=== PATIENT | female | born 1980 | race Hispanic/Latino ===

== ENCOUNTER 2019-05-24 00:16 | Inpatient (IN) | payer MEDICAID, OTHER ==
[2019-05-24] MEDS: Lactated Ringer's 1,000 ML IV SCH (01:01)
[2019-05-24] MEDS ORDERED: hydrALAZINE 20 MG/ML VIAL SLOW IVP PRN ×3 (01:04→05:42)
[2019-05-24] MEDS ORDERED: Acetaminophen 500 MG TAB PO PRN ×2 (01:04→07:19)
[2019-05-24] MEDS ORDERED: Promethazine HCl 25 MG/ML VIAL IM PRN (01:04)
[2019-05-24] MEDS ORDERED: Ondansetron PF 4 MG/2 ML Vial IVP PRN (01:04)
[2019-05-24 01:14] VITALS: BMI 39.0
[2019-05-24] MEDS ORDERED: Magnesium Sulfate 20 gm/500 ml 20 GM/500 ML BAG ONE (01:14)
[2019-05-24] MEDS ORDERED: Calcium Gluc 4.6 MEQ/10 ML (100 MG/ML) SLOW IVP PRN (01:16)
[2019-05-24] MEDS: Magnesium Sulfate 20 gm/500 ml 20 GM/500 ML BAG IVPB SCH ×3 (01:22→20:29)
[2019-05-24] MEDS ORDERED: Lidocaine 1% (PF) 30 ML VIAL ONE (01:25)
[2019-05-24] MEDS ORDERED: NS / Oxytocin 40 units/1000ml 1,000 ML ONE ×2 (01:25→01:35)
[2019-05-24] MEDS ORDERED: Magnesium Sulfate 20 GM/WATER 500 ML BAG IVPB SCH (01:30)
[2019-05-24 01:32] LABS: Hemoglobin 13.9 g/dL (12.0-16.0); Mean Corpuscular HGB CONC 35.6 g/dL (32.0-36.0); Mean Platelet Volume 10.9 fL (7.4-10.4); Platelet Count 204 thou/uL (130-400); RBC Distribution Width 12.7 % (11.5-14.5); Red Blood Cell (RBC) Count 4.49 mill/uL (4.20-5.40); White Blood Cell (WBC) Count 15.3 thou/uL (4.8-10.8)
[2019-05-24] MEDS ORDERED: Misoprostol 200 MCG TAB ONE (01:34)
[2019-05-24] MEDS ORDERED: Methylergonovine 0.2 MG/ML VIAL ONE (01:35)
[2019-05-24] MEDS ORDERED: Carboprost 250 MCG/ML AMP ONE (01:35)
[2019-05-24] MEDS ORDERED: Milk Of Magnesia 30 ML UDCUP PO PRN (01:49)
[2019-05-24] MEDS ORDERED: Lanolin Ointment 7 GM TUBE TOP PRN (01:49)
[2019-05-24] MEDS ORDERED: NS / Oxytocin 40 units/1000ml 1,000 ML IV SCH ×2 (02:00→07:15)
[2019-05-24 02:05] LABS: HBSAg Index 0.12 S/CO (0-0.99); Hep B Surf Ag Non-Reactive S/CO (NonReactive)
[2019-05-24] MEDS ORDERED: Labetalol HCl 100 MG/20 ML VIAL SLOW IVP PRN ×2 (02:10→08:45)
[2019-05-24 02:40] LABS: HBSAB Concentration 0.86 mIU/mL; Hep B Surf AB Non-Reactive (NonReactive)
[2019-05-24] MEDS ORDERED: HYDROcodone/Acetaminophen 5/325 mg Tablet PO ONE (02:45)
--- NOTE | 2019-05-24 02:59 | PDOC.OPDEL ---
OB Operative/Delivery Note Delivery Dr/Surgeon: Flynn Loza [place] - Additional Findings/Plan Compilations/Other Findings: Delivering Physician: Keaton Pruett Attending: Dago Procedure: Spontaneous Vaginal Delivery Anesthesia: none QBL: 397 ml Pre-op Diagnosis: 1. Suspected term intrauterine in labor 2. Questionable care 3. GBS unknown 4. Pre-E with severe features 5. AMA 6. Obesity Post-op Diagnosis: 1. Suspected term intrauterine , delivered 2-6. same as above Indications: A 39y/o female presents in active labor Delivery Note: This is 39yo F @ 40.0wks who delivered a viable F at 0131 on 05/24/2019. Patient arrived to the L&D floor at 100/+1 without records. She is uncertain of the location where she received pre- care or the name of the physician following her for her care. She reports she had an US at 14wga that dated her with a MAVERICK of 05/24/2019. PNL uncertain, GBS unknown. Upon arrival to L&D she had multiple BP in the severe range and magnesium was started @ 0115. Following AROM with clear fluid, a vigorous female was delivered over an intact perineum in the occipitoanterior position. Anterior Shoulder and then remainder of the body delivered. No nuchal cord. The head was held down and mouth and nares were bulb suctioned. Cord clamped after delayed cord clamping and cut and cord blood collected. Placenta delivered intact in the Finley presentation with a 3 vessel cord noted. Fundal massage was performed and the fundus was firm. The cervix and vagina were inspected and found to be free of lacerations. Pitocin was started and 800mg cytotec were given UT. Infant went to nursery in good condition for routine care. Apgars were 9/9 at 1 & 5 minutes, respectively. Patient tolerated delivery well and went to after routine recovery/care. Addendum - Attending - Attending Attestation Date/Time: 05/24/19 0702 I personally evaluated the patient and discussed the management with Dr. Pruett I agree with the History, Examination, Assessment and Plan documented above with any addition or exceptions noted below. I was present and supervising for the 2nd and 3rd stages of labor.
[2019-05-24 03:51] LABS: Anion Gap 22 mmol/L (10-20); BUN (Urea Nitrogen) 5 mg/dL (7.0-18.7); Calc. Creatinine Clearance 178 mL/min (70-130); Carbon Dioxide 12 mmol/L (22-29); Chloride 107 mmol/L (98-107); Estimated GFR-MDRD Greater than 90; Glucose 93 mg/dL (70-105); Potassium 3.5 mmol/L (3.5-5.1); Sodium 137 mmol/L (136-145)
[2019-05-24 04:02] LABS: Bacteria/HPF None Seen HPF (None Seen); Bilirubin Negative (Negative); Blood, Urine Negative (Negative); Clarity Clear (Clear); Glucose, Urine (Dipstick) Normal (Negative); Leukocyte 500 Leu/uL (Negative); Nitrite Negative (Negative); Protein, Urine (Dipstick) 10 mg/dL (Neg-Trace); RBC/HPF 0-3 HPF (0-3); Squamous Epithelial 0-3 HPF (0-3); Urobilinogen Normal mg/dL (Less than 2)
[2019-05-24 04:04] LABS: Amphetamine Not Detected (NotDetected); Barbiturates Screen Not Detected (NotDetected); Benzodiazepine Screen Not Detected (NotDetected); Cocaine Metabolite Screen Not Detected (NotDetected); Medtox Control Line Valid? VALID (VALID); Medtox Reader # READER 4; Methadone Not Detected (NotDetected); Methamphetamine Not Detected (NotDetected); Opiate Screen Not Detected (NotDetected); Oxycodone Screen Not Detected (NotDetected); Phencyclidine (PCP) Not Detected (NotDetected); THC/Cannabinoid Screen Not Detected (NotDetected); Tricyclic Screen Not Detected (NotDetected)
[2019-05-24 04:10] LABS: Creatinine, Urine 58.38 mg/dL (47-110)
[2019-05-24 05:07] LABS: Syphilis Antibody Nonreactive (Nonreactive); Syphilis Antibody Index 0.05 S/CO (<1.00 Non-Reactive)
[2019-05-24] MEDS ORDERED: NIFEdipine XL 30 MG TAB PO SCH (05:30)
--- NOTE | 2019-05-24 05:53 | PDOC.BPN ---
- Brief Progress Note 39F >8 delivered @ 0131 on 05/24/19, suspected 40-41wga based on patient report and bojorquez score. Questionable care. Started on mag @ 0115 for pre-e with severe features. S: Patient doing well. Denies SOB, cp. Resting comfortably in bed. O: BP 146-173/87-97. Urine output 50-100ml/hr. Tachycardic 110-120. Patient resting comfortably, in no acute distress. Cardiac: Regular rhythm, tachycardic rate Respiratory: CTAB Reflexes: 2+ throughout A: 37 on mag for pre-e with severe features. P: Pre-e with severe features: Will continue to monitor BP, urine output, and reflexes while patient is on mag. Will continue q4h mag checks, suspect mag to be turned off 05/24/18 @ 0115 BP: PRN 10mg hydralazine q30min added for BP control. Will consider starting ca- channel tc for better BP management pending prn necessity throughout today. Will continue to monitor Urine output: adequate, will continue to monitor Tachycardia: Qbl 397ml. Patient received 2L IVF. Will continue to encourage PO intake. Questionable care: UDS and MDS pending. TAMP to round on patient and baby throughout hospitalization. Will try to refer patient to resources for future care. Case discussed with Dr. Loza who is in agreement with the current plan of care.
[2019-05-24 07:11] LABS: HIV (1/2) Antibody/Antigen Non-Reactive (NonReactive)
[2019-05-24] MEDS ORDERED: Benzocaine-Menthol 82.5 ML CAN TOP PRN (07:13)
[2019-05-24] MEDS ORDERED: Bisacodyl 10 MG SUPP PR PRN (07:13)
[2019-05-24] MEDS ORDERED: diphenhydrAMINE 25 MG CAP PO PRN (07:13)
[2019-05-24] MEDS ORDERED: Misoprostol 200 MCG TAB VAG PRN (07:13)
--- NOTE | 2019-05-24 07:25 | PDOC.PP ---
Post Progress Note Post Day #: 0 Subjective: 39YO G8 now P8 who is PP day #0 s/p a precipitous @ an estimated 40 WGA @ ~ 0130 this AM who received no care and was GBS unknown. Was also started on Mg shortly before delivery due to severe range BPs. Patient reports feeling ok this AM, just tired. States bleeding is similar to a period. Is passing gas. Not yet voiding or ambulating as frey is in place while on Mg therapy. States pain is decently controlled on PO therapy. Denies any headache, chest pain, abdominal pain, scotomata, or LE edema. PO intake tolerated: yes Flatus: yes Ambulation: no Vital Signs (12 hours) Pulse BP 05/24/19 02:25 125 H 164/95 H 05/24/19 01:17 137 H 195/103 H Weight Weight 90.718 kg - Physical Examination General: NAD Cardiovascular: no m/r/g Deviation from normal: tachycardic but regular rhythm Respiratory: clear to auscultation bilaterally, non-labored breathing Abdominal: + bowel sounds, lochia, no distention, appropriately TTP Extremities: negative homans (B) Neurological: no gross focal deficits Psychiatric: A&Ox3, normal affect Result Diagrams: 05/28/19 03:55 05/27/19 04:22 Additional Labs: Post Labs Blood Type O POSITIVE 05/24/19 01:11 Hep Bs Antigen Non-Reactive S/CO (NonReactive) 05/24/19 01:11 (1) No care in current Code(s): O09.30 - SUPRVSN OF PREG W INSUFFICIENT ANTENAT CARE, UNSP TRIMESTER Status: Chronic (2) Obesity (BMI 30-39.9) Code(s): E66.9 - OBESITY, UNSPECIFIED Status: Chronic (3) Gestational [-induced] hypertension without significant proteinuria , complicating childbirth Code(s): O13.4 - GESTATNL HTN WITHOUT SIGNIFICANT PROTEIN, COMP CHILDBIRTH Status: Resolved Comment: Pt states this has been a proble toward the end in all of her pregnancies. 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 #PP day #0 s/p @ ~0130 on 05/24/19: - Pain decently controlled but rated it as 6/10 in her back on exam. Will start on LEONIE motrin & PRN tylenol. Normal lochia s/p pitocin & cytotec. Tolerating liquids PO and not yet ambulating or voiding due to cath being in place as on Mg therapy. Continue routine PP care. #gHTN with severe range pressures vs. pre-e w/ severe features: - Severe range blood pressures noted since admission. Was start on IV Mg ~15 minutes before delivery for this and has since received hydralazine 10mg IV (@ ~ 0530AM) with Bps in the 150s/80-90s since. UO 125-200/hr for last 4 hours. - Will continue IV Mg until ~0130 on 05/24 which will be 24 hours s/p delivery. - LFTs pending but urine protein:Cr ration just below 0.3 and Plts & Cr WNLs. - Continue PRN labetalol as patient has been tachycardic since admission as well & will consider starting on detention PO therapy should pressures require more doses of acute IV therapy. - Continue monitoring BPs & UO closely. #grandmultiparity: -s/p routine pit & 800mcg cytotec to prevent PPH. Will patent counsel on contraception options prior to d/c. #No PNC: - Patient not forthcoming as to why she did not receive PNC. Has told different providers different stories as to who she saw during this . Will consult CM to evaluate whether or not will be safe to go home with parents. - HIV, RPR, Hep B & UDS negative which is reassuring. Rubella immunity status pending. #Obesity: - Aware, SCDs for PP VTE PPX. Will encourage weight loss. #GBS Status Unknown: - inadequate care so no Cx for review & unable to receive tx as patient delivered so precipitously. - Will monitor in hospital for a minimum of 48 hours for s/s of infection. Dispo: Continue IV Mg therapy in LICU until ~0130 on 05/25/19 as long as BPs remain controlled.
[2019-05-24] MEDS ORDERED: Acetaminophen 500 MG TAB PO SCH (07:45)
[2019-05-24] MEDS ORDERED: Ibuprofen 800 MG TAB PO SCH ×2 (09:00→14:00)
[2019-05-24] MEDS ORDERED: Adacel (T-DAP) 0.5 ML SYRINGE IM ONE (09:00)
[2019-05-24 09:02] LABS: ALT (SGPT) 71 U/L (8-55); AST (SGOT) 70 U/L (5-34); Albumin 3.5 g/dL (3.5-5.0); Alkaline Phosphatase 372 U/L (40-110); Bilirubin, Direct 0.3 mg/dL (0.1-0.3); Bilirubin, Total 0.7 mg/dL (0.2-1.2); Protein, Total 6.8 g/dL (6.0-8.3)
--- NOTE | 2019-05-24 15:04 | PDOC.BPN ---
<Marichuy Raya - Last Filed: 05/24/19 14:57> - Brief Progress Note Nursing notified MD of persistent tachycardia into the 130s. All other vitals WNLs. Patient resting comfortably in bed but reports mild low back pain. Reports this "happens with all of her babies." Says her mother has the same problem. Denies any heavy bleeding, dizziness, headache, scotomata, abdominal pain, N/V/D/C. Normal lochia since delivery. Also denies any fever/chills & has been afebrile since admission. 12 lead EKG revealed sinus tachycardia with a rate of 134. Will obtain a CBC and TSH as well to r/o symptomatic acute blood loss anemia and/or hyperthyroidism as possible etiologies. Will continue to hold hydralazine for PRN BP treatment and will continue to monitor VS closely. <Erlin Lazar - Last Filed: 05/24/19 15:59> Addendum - Attending - Attending Attestation Date/Time: 05/24/19 1469 I personally evaluated the patient and discussed the management with Dr. Raya. I agree with the History, Examination, Assessment and Plan documented above.
[2019-05-24 16:06] LABS: Band 20 % (5-11); Hemoglobin 12.6 g/dL (12.0-16.0); Lymphocytes 2 % (21-51); MDiff Complete? YES; Mean Corpuscular HGB CONC 33.6 g/dL (32.0-36.0); Mean Corpuscular Volume 86.4 fL (78.0-98.0); Mean Platelet Volume 11.2 fL (7.4-10.4); Monocytes 5 % (0-10); Neutrophil 73 % (42-75); Platelet Count 182 thou/uL (130-400); Platelet Morphology Comment Appears Adequate; RBC Distribution Width 12.9 % (11.5-14.5); RBC Morphology Normal; Red Blood Cell (RBC) Count 4.35 mill/uL (4.20-5.40); White Blood Cell (WBC) Count 14.4 thou/uL (4.8-10.8)
[2019-05-24] MEDS ORDERED: hydrOXYzine 10 MG TAB PO PRN (16:45)
[2019-05-24] MEDS ORDERED: Labetalol HCl 100 MG/20 ML VIAL SLOW IVP SCH (17:00)
[2019-05-24] MEDS ORDERED: hydrOXYzine 25 MG TAB PO SCH (17:00)
[2019-05-24] MEDS: Acetaminophen 500 MG TAB PO PRN (19:59)
[2019-05-24] MEDS: Labetalol HCl 100 MG/20 ML VIAL SLOW IVP PRN (20:01)
[2019-05-24] MEDS ORDERED: GENTAMICIN SULFATE IVPB SCH (20:30)
--- NOTE | 2019-05-24 20:35 | PDOC.BPN ---
<Meredith Pruett - Last Filed: 05/24/19 20:35> - Brief Progress Note 39F >8 delivered @ 0131 on 05/24/19, suspected 40-41wga based on patient report and bojorquez score. Questionable care. Started on mag @ 0115 for pre-e with severe features. S: Patient doing well. Denies SOB, cp, abdominal pain. Reports feeling some chills. Resting comfortably in bed. O: Temp 102F, 101.6F. BP 130s-180s/80s-90s. Urine output 50-400ml/hr. Tachycardic Patient resting comfortably, in no acute distress. Cardiac: Regular rhythm, tachycardic rate Respiratory: CTAB Abdomen: no ttp throughout : mild lochia, no mal-odorous discharge present Reflexes: 2+ throughout A: 37 on mag for pre-e with severe features. P: Pre-e with severe features: Will continue to monitor BP, urine output, and reflexes while patient is on mag. Will continue q4h mag checks BP: PRN labetalol preferred at this time due to patient's tachycardia. If patient continues to have elevated pressures will continue mag past the 24 hour isabel. Will consider starting labetalol for better BP management. Will continue to monitor Urine output: adequate, will continue to monitor Tachycardia & fever: Patient spiked fever, WBC has come down to 14 today but patient has been tachycardic throughout the day. Blood cultures, urine cultures , gonorrhea/chlamydia pending. UA did have LE present, possibly UTI. Will start clindamycin and gentamycin for suspected possible endometritis. Can consider adding ampicillin if patient continues to fever. Questionable care: UDS negative, MDS pending. CM consulted. Case discussed with Dr. Lazar who is in agreement with the current plan of care. <Erlin Lazar - Last Filed: 05/24/19 20:57> Addendum - Attending - Attending Attestation Date/Time: 05/24/192055 I personally evaluated the patient and discussed the management with Dr. Pruett. I agree with the History, Examination, Assessment and Plan documented above. Will start Gent/Clinda for suspected endometritis and observe closely.
[2019-05-24] MEDS ORDERED: Gentamicin Sulfate 320 MG in Sodium Chloride 0.9% 100 ML IVPB SCH (21:00)
[2019-05-24] MEDS: Clindamycin/D5W 900 MG in Premix Bag 1 BAG IVPB SCH (21:00)
[2019-05-24 21:28] LABS: Bacteria/HPF 3+ HPF (None Seen); Bilirubin Negative (Negative); Blood, Urine Trace (Negative); Clarity Clear (Clear); Glucose, Urine (Dipstick) Normal (Negative); Leukocyte 250 Leu/uL (Negative); Nitrite 1+ (Negative); Protein, Urine (Dipstick) Negative (Neg-Trace); RBC/HPF 0-3 HPF (0-3); Squamous Epithelial 0-3 HPF (0-3); Urobilinogen Normal mg/dL (Less than 2)
[2019-05-25] MEDS ORDERED: Ibuprofen 600 MG TAB PO PRN (01:12)
[2019-05-25] MEDS ORDERED: Labetalol 100 MG TAB PO SCH ×2 (01:30→09:00)
[2019-05-25] MEDS: Labetalol HCl 100 MG/20 ML VIAL SLOW IVP PRN (01:32)
[2019-05-25 01:56] LABS: #Lymphocytes 0.3 thou/uL (1.20-3.40); #Monocytes 0.1 thou/uL (0.11-0.59); %Eosinophils 0.2 % (0.0-10.0); %Lymphocytes 4.9 % (21.0-51.0); %Monocytes 0.8 % (0.0-10.0); %Neutrophils 94.1 % (42.0-75.0); Mean Corpuscular HGB CONC 35.2 g/dL (32.0-36.0); Mean Corpuscular Hemoglobin 30.9 pg (27.0-31.0); Mean Corpuscular Volume 87.7 fL (78.0-98.0); Mean Platelet Volume 10.7 fL (7.4-10.4); Platelet Count 142 thou/uL (130-400); White Blood Cell (WBC) Count 6.4 thou/uL (4.8-10.8)
--- NOTE | 2019-05-25 01:57 | PDOC.BPN ---
<Meredith Pruett - Last Filed: 05/25/19 01:44> - Brief Progress Note Patient had been improving overnight including her temperature, pulse, and blood pressure. There was an acute change early this morning around 1am with patient shivering rapidly, increasing her pulse up into the 160s, and blood pressures 190s-200s/80s-110s. Her oxygen requirements also increased from 100% on RA to 15L O2 via mask. She did not endorse any cp, cough, or abdominal pain. On physical exam the patient was shivering, cardiac exam demonstrated a tachycardic heart rate and normal rhythm, and her respiratory exam demonstrated tachypnea with poor inspiratory effort and slight expiratory wheezing LLL. Abdomen was not ttp and there was minimal non mal-odorous lochia. The washhouse worker was notified and the process of transferring to the ICU was started. A stat CXR was ordered, as well as a stat EKG and stat labs including CBC, CMP, BNP, trop, lactic, coag panel. A stat CTA was also ordered for a suspected PE. A family medicine consult was placed for increased level of care of the patient in the ICU. Dr. Adalberto MD was notified and evaluated the patient and accepted the consult. The patient's CXR was done, labs were drawn, and the patient was immediately transitioned down to have a CTA. Labs and imaging are currently pending. Will continue to follow. The patient was evaluated by and the case discussed with Dr. Lazar who is in agreement with the current plan of care. <Erlin Lazar - Last Filed: 05/25/19 03:04> Addendum - Attending - Attending Attestation Date/Time: 05/25/19 0301 I personally evaluated the patient and discussed the management with Dr. Pruett. CTSP for tachycardia, tachypnea, and increasing O2 requirement. Portable CXR appears nonfocal. Dr. Glover consulted. Will obtain pulmonary CT angiogram and transfer pt. to ICU for monitoring there. I agree with the History, Examination, Assessment and Plan documented above.
[2019-05-25 01:58] LABS: INR-International Normal Ratio 0.9; PTT 31.8 SEC (22.9-36.1); Prothrombin Time 12.5 SEC (12.0-14.7)
[2019-05-25] MEDS ORDERED: Lactated Ringer's 1,000 ML IV SCH (02:30)
[2019-05-25] MEDS: Lactated Ringer's 1,000 ML IV SCH ×5 (02:33→13:12)
[2019-05-25] MEDS: Prenatal Vitamin 1 TAB PO SCH ×2 (02:34→09:48)
[2019-05-25] MEDS: Ferrous Sulfate 325 MG TAB PO SCH ×4 (02:34→18:18)
[2019-05-25] MEDS: Docusate Calcium (SURFAK) 240 MG CAP PO SCH ×4 (02:34→22:25)
[2019-05-25 02:35] LABS: CKMB 1.5 ng/mL (0-6.6)
[2019-05-25 02:36] LABS: Calcium, Ionized 1.01 mmol/L (1.12-1.30); Carboxyhemoglobin (COHb) 0.8 gm% (0.0-3.0); Hemoglobin (Hb) 12.8 g/dL (12.0-16.0); O2 Tension (PaO2) 63.5 mmHg (80.0-100.0); Potassium - ABG Lab 3.72 mmol/L (3.70-5.30); pH, Arterial 7.49 (7.35-7.45)
[2019-05-25 02:40] LABS: Puncture Site LRA
[2019-05-25 02:45] LABS: Lactic Acid 3.4 mmol/L (0.5-2.2)
[2019-05-25] MEDS: Acetaminophen 500 MG TAB PO PRN (02:47)
[2019-05-25 02:57] LABS: ALT (SGPT) 68 U/L (8-55); AST (SGOT) 64 U/L (5-34); Albumin 2.9 g/dL (3.5-5.0); Alkaline Phosphatase 312 U/L (40-110); Anion Gap 14 mmol/L (10-20); BUN (Urea Nitrogen) 4 mg/dL (7.0-18.7); Bilirubin, Total 1.1 mg/dL (0.2-1.2); Calc. Creatinine Clearance 151 mL/min (70-130); Calcium 6.9 mg/dL (7.8-10.44); Carbon Dioxide 18 mmol/L (22-29); Chloride 105 mmol/L (98-107); Estimated GFR-MDRD 90; Globulin 2.8 g/dL (2.4-3.5); Glucose 130 mg/dL (70-105); Magnesium 5.2 mg/dL (1.6-2.6); Potassium 4.4 mmol/L (3.5-5.1); Protein, Total 5.7 g/dL (6.0-8.3); Sodium 133 mmol/L (136-145)
--- NOTE | 2019-05-25 04:20 | CON ---
DATE OF CONSULTATION: 05/25/2019 CHIEF COMPLAINT: Shortness of breath. HISTORY OF PRESENT ILLNESS: Ms. Odalis Mosley is a 39-year-old 8, now para 8-0-0-8, who delivered approximately 24 hours ago precipitously. She presented to Labor and Delivery at approximately 9 cm dilation and delivered shortly after. She received no care this . The patient was delivered by the OB hospitalist group in conjunction with the Family Medicine residents. She experienced antepartum course. Delivery is remarkable for preeclampsia with severe features with prompt initiation of IV magnesium therapy shortly after arrival to the Labor and Delivery Unit. The patient was noted to be tachycardic in the low 100s to 110s throughout her entire hospital stay. She developed a fever at approximately 2000 hours on 05/24/2019. It was felt the patient had underlying endometritis and was started on clindamycin and gentamicin by the OB hospitalist team. At approximately 0100 hours on 05/25/2019, the patient began to experience an acute onset shortness of breath and worsening of her tachycardia up to the 160s to 170s. I was called by the OB hospitalist and residents to evaluate the patient on the Labor and Delivery Unit. She had stat labs drawn and a stat CTA ordered and performed. Upon my arrival, the patient's blood pressure was reading approximately 200/100. I have ordered IV labetalol 20 mg to be given to control her blood pressure and pulse. The decision was then made to move the patient to the ICU for closer monitoring. PAST MEDICAL HISTORY: Grand multiparity, advanced maternal age. PAST SURGICAL HISTORY: Unremarkable. FAMILY HISTORY: Unremarkable. ALLERGIES: NO KNOWN DRUG ALLERGIES. SOCIAL HISTORY: No recent travel. Denies tobacco, alcohol, or illicit drug use. REVIEW OF SYSTEMS: Please see HPI. A 12-point review of systems otherwise negative. PHYSICAL EXAMINATION: VITAL SIGNS: Blood pressure initially 200/100, now 130/90 after labetalol and diltiazem. Pulse 151, respiratory rate 18, pulse ox 100% on 3 L nasal cannula, temperature 103F. GENERAL: Moderate respiratory distress. Alert and oriented x4. CARDIOVASCULAR: Tachycardic rate, regular rhythm. No murmurs, rubs, or gallops appreciated. PULMONARY: Clear to auscultation bilaterally. Moderate respiratory distress. No retractions noted. ABDOMEN: Soft, nontender to palpation. NEUROLOGIC: No gross focal deficits. SKIN: Warm, moist, intact. PSYCHIATRIC: Mood and affect are appropriate and congruent. LABORATORY FINDINGS: CBC; white blood cell count 6.4, hemoglobin 13.0, hematocrit 36.8, MCV 87.7, and neutrophils 94.1. Coagulation studies; PT 12.5, INR 0.9, APTT 31.8. Arterial blood gas; pH 7.49, pCO2 of 27, PO2 of 63.5, bicarb 20.0. CMP; sodium 133, potassium 4.4, chloride 105, bicarb 18, BUN 4, creatinine 0.73, EGFR 90, glucose 130, calcium 6.9, magnesium 5.2, AST 64, ALT 68. Both of these are downtrending from prior examination. Alkaline phosphatase 312, total protein 5.7, albumin 2.9, globulin 2.7, bilirubin 1.1. Cardiac labs; CK-MB 1.5, troponin 0.075. BNP 73. Miscellaneous labs; lactic acid 3.4, TSH 0.610. UDS negative on admission. IMAGING STUDIES: CTA of the chest reviewed by me. No filling defects. Unremarkable examination. Chest x-ray reviewed by me, no acute processes. EKG, sinus tachycardia, no ST elevation, depression noted. Normal intervals. ASSESSMENT: Ms. Mosley is a 39-year-old 8, para 8, who recently delivered at the past 24 hours. She developed acute onset worsening shortness of breath in the context of fever. No known sick contacts or recent travel. At this time, plan is as follows. 1. Acute hypoxic respiratory distress with unknown etiology at this time. Given recent COVID outbreaks, the patient is undergoing COVID evaluation. CTA was negative. It is possible this is a case of acute flash pulmonary edema due to spike in her blood pressure. We will aggressively control her blood pressure with IV medications. I spoke with Dr. العراقي regarding care of this patient. He was agreeable to the current plan. 2. Preeclampsia with severe features. Continue IV magnesium. Monitor urine outputs. Check deep tendon reflexes. 3. Sinus tachycardia. We will treat fever with Tylenol and Motrin. The patient is to be given 1 L bolus and started on lactated Ringer's of 150 mL/h. The patient is status post labetalol and diltiazem, for which her pulse was unresponsive. We will consider additional medications if her pulse remains elevated after fluid bolus and antipyretics. 4. No care. Dr. Lazar has asked the Family Medicine Service assume care of the patient now that she has been transferred to the ICU. We have accepted the transfer of care for this patient. Our team will follow along with her. Approximately 75 minutes critical care time spent with this patient. Job ID: [id number] MTDD
[2019-05-25 05:49] LABS: CKMB 2.1 ng/mL (0-6.6)
[2019-05-25] MEDS: Ibuprofen 800 MG TAB PO SCH ×3 (05:51→22:25)
[2019-05-25] MEDS: Clindamycin/D5W 900 MG in Premix Bag 1 BAG IVPB SCH ×2 (05:52→14:27)
--- NOTE | 2019-05-25 07:06 | CT ---
PRELIMINARY REPORT/[facility]/EMERGENCY AFTER HOURS PROCEDURE: EXAM: CTA Chest with Intravenous Contrast CLINICAL HISTORY: Eval for possible PE; sudden SOB/fever ; denies chest pain TECHNIQUE: Axial CTA images of the chest with intravenous contrast. MIP reconstructed images were created and re viewed. CONTRAST: With; ISOVUE 370, 60ml COMPARISON: None provided. FINDINGS: The examination is somewhat limited due to motion artifact. PULMONARY ARTERIES There is no intraluminal filling defect suspicious for PE. AORTA No thoracic aortic aneurysm or dissection. LUNGS The lungs are clear. No pulmonary mass. No focal airspace consolidation. PLEURAL SPACES No pleural effusion. No pneumothorax. HEART AND MEDIASTINUM No cardiomegaly. No significant pericardial effusion. LYMPH NODES No lymphadenopathy. BONES No focal osseous abnormality or acute fracture. CHEST WALL AND UPPER ABDOMEN Images through the upper abdomen are unremarkable. The chest wall is unremarkable. IMPRESSION: Unremarkable CTA of the chest. ELECTRONICALLY SIGNED BY: Christi Cotter MD May 25, 2019 2:20:53 AM CDT This report is intended for review by the ordering physician only, in accordance of law. If you recei ve this report in error, please call [facility] at [phone]. FINAL REPORT EMERGENCY AFTER HOURS CTA CHEST: I agree with the preliminary report provided by [facility]. No definite central pulmonary embolus is evident. The timing of the contrast bolus slightly limits ev aluation of the segmental branches of both pulmonary arterial trees. No air space consolidation is ev ident. There is dependent atelectasis involving the posterior lower lobes. No pleural effusion or pne umothorax is evident. No enlarged lymph nodes are present. Heart and great vessels appear within norm al limits. The visualized upper abdomen does demonstrate some mild hepatosplenomegaly. The spleen kirsten sures up to 13.4 cm. No acute osseous abnormality is evident. POS: BH
--- NOTE | 2019-05-25 07:11 | PDOC.OBPPN ---
FMR OB PN: Subj - Interval History Hospital Day: 2 Day: 1 Chief Complaint: None Indentification: G8 now P8 who is PP day #1 s/p ~40 WGA w/ no PNC & pre-e w/ severe features Interval History: Tx to CCU as pt developed fever, worsening tachycardia & HTN, & hypoxia. FMR OB PN: Obj - Maternal Vital signs: BP: 106/58 HR: 95 RR: 19 Tmax: 103.3F Pox: 100% on RA Wt: 90.718 kg - Urine output I&O: 05/24/19 05/25/19 05/26/19 06:59 06:59 06:59 Intake Total 2100 Output Total 1310 Balance 790 - Lochia Lochia: normal - Pain Management Pain scale: 0 Intervention: oral medication FMR OB PN: Exam - Physical Exam General: NAD, awake, alert and oriented HEENT: MMM, conjunctiva clear, grossly normal vision, grossly normal hearing, oropharynx clear Neck: supple, FROM, no LAD Heart: normal S1/S2, no murmurs/rubs/gallops, pulses present, no edema General: CTAB, no respiratory distress, good air movement, no rales/rhonchi, no wheezing Abdomen: soft, non-tender, bowel sound present Musculoskeletal: FROM in all four extremities Neurological: cranial nerves II through XII intact, sensation to pain,touch and proprioception grossly normal, DTR +2, no focal deficit Skin: no rash, good tugor, capillary refill <2 seconds Psychiatric: intact recent and remote memory, good judgement and insight, normal mood and affect - Pelvic Exam : no discharge, no edema, normal lochia FMR OB PN: Data - Labs Lab results: Laboratory Results - last 24 hr 05/24/19 05/24/19 05/24/19 01:11 01:11 14:44 WBC RBC Hgb Hct MCV MCH MCHC RDW Plt Count MPV Neutrophils % Neutrophils % (Manual) Band Neuts % (Manual) Lymphocytes % Lymphocytes % (Manual) Monocytes % Monocytes % (Manual) Eosinophils % Basophils % Neutrophils # Lymphocytes # Monocytes # Eosinophils # Basophils # Plt Morphology Comment RBC Morph Comment PT INR APTT Specimen Type Puncture Site Bicarbonate Actual ABG pH ABG pCO2 ABG pO2 ABG O2 Sat Calc/Brian ABG O2 Content ABG Base Excess ABG Hematocrit ABG Hemoglobin ABG Oxyhemoglobin ABG Carboxyhemoglobin ABG Methemoglobin ABG Deoxyhemoglobin Tung Test A-a O2 Gradient Ionized Calcium Mode of Support Inspired O2 Sodium Potassium Chloride Carbon Dioxide Anion Gap BUN Creatinine Estimated GFR (MDRD) Glucose Lactic Acid Calcium Magnesium Total Bilirubin 0.7 Direct Bilirubin 0.3 AST 70 H ALT 71 H Alkaline Phosphatase 372 H CK-MB (CK-2) Troponin I B-Natriuretic Peptide Serum Total Protein 6.8 Albumin 3.5 Globulin Albumin/Globulin Ratio TSH 3rd Generation 0.6101 Urine Color Urine Clarity Urine pH Ur Specific [place] Urine Protein Urine Glucose (UA) Urine Ketones Urine Blood Urine Nitrite Urine Bilirubin Urine Urobilinogen Ur Leukocyte Esterase Urine RBC Urine WBC Ur Squamous Epith Cells Urine Bacteria Hyaline Casts Random Gentamicin HIV 1&2 Antigen & Ab Non-Reactive 05/24/19 05/24/19 05/25/19 14:44 21:15 01:39 WBC 14.4 H RBC 4.35 Hgb 12.6 Hct 37.6 MCV 86.4 MCH 29.0 MCHC 33.6 RDW 12.9 Plt Count 182 MPV 11.2 H Neutrophils % Neutrophils % (Manual) 73 Band Neuts % (Manual) 20 H Lymphocytes % Lymphocytes % (Manual) 2 L Monocytes % Monocytes % (Manual) 5 Eosinophils % Basophils % Neutrophils # Lymphocytes # Monocytes # Eosinophils # Basophils # Plt Morphology Comment Appears Adequate RBC Morph Comment Normal PT INR APTT Specimen Type Puncture Site Bicarbonate Actual ABG pH ABG pCO2 ABG pO2 ABG O2 Sat Calc/Brian ABG O2 Content ABG Base Excess ABG Hematocrit ABG Hemoglobin ABG Oxyhemoglobin ABG Carboxyhemoglobin ABG Methemoglobin ABG Deoxyhemoglobin Tung Test A-a O2 Gradient Ionized Calcium Mode of Support Inspired O2 Sodium 133 L Potassium 4.4 Chloride 105 Carbon Dioxide 18 L Anion Gap 14 BUN 4 L Creatinine 0.73 Estimated GFR (MDRD) 90 Glucose 130 H Lactic Acid Calcium 6.9 L Magnesium 5.2 H Total Bilirubin 1.1 Direct Bilirubin AST 64 H ALT 68 H Alkaline Phosphatase 312 H CK-MB (CK-2) Troponin I B-Natriuretic Peptide Serum Total Protein 5.7 L Albumin 2.9 L Globulin 2.8 Albumin/Globulin Ratio 1.0 L TSH 3rd Generation Urine Color Yellow Urine Clarity Clear Urine pH 5.5 Ur Specific [place] 1.016 Urine Protein Negative Urine Glucose (UA) Normal Urine Ketones Negative Urine Blood Trace A Urine Nitrite 1+ A Urine Bilirubin Negative Urine Urobilinogen Normal Ur Leukocyte Esterase 250 A Urine RBC 0-3 Urine WBC 11-20 A Ur Squamous Epith Cells 0-3 Urine Bacteria 3+ A Hyaline Casts 0-3 Random Gentamicin HIV 1&2 Antigen & Ab 05/25/19 05/25/19 05/25/19 01:39 01:39 01:39 WBC 6.4 RBC 4.20 Hgb 13.0 Hct 36.8 MCV 87.7 MCH 30.9 MCHC 35.2 RDW 13.0 Plt Count 142 MPV 10.7 H Neutrophils % 94.1 H Neutrophils % (Manual) Band Neuts % (Manual) Lymphocytes % 4.9 L Lymphocytes % (Manual) Monocytes % 0.8 Monocytes % (Manual) Eosinophils % 0.2 Basophils % 0.0 Neutrophils # 6.0 Lymphocytes # 0.3 L Monocytes # 0.1 L Eosinophils # 0.0 Basophils # 0.0 Plt Morphology Comment RBC Morph Comment PT INR APTT Specimen Type Puncture Site Bicarbonate Actual ABG pH ABG pCO2 ABG pO2 ABG O2 Sat Calc/Brian ABG O2 Content ABG Base Excess ABG Hematocrit ABG Hemoglobin ABG Oxyhemoglobin ABG Carboxyhemoglobin ABG Methemoglobin ABG Deoxyhemoglobin Tung Test A-a O2 Gradient Ionized Calcium Mode of Support Inspired O2 Sodium Potassium Chloride Carbon Dioxide Anion Gap BUN Creatinine Estimated GFR (MDRD) Glucose Lactic Acid Calcium Magnesium Total Bilirubin Direct Bilirubin AST ALT Alkaline Phosphatase CK-MB (CK-2) 1.5 Troponin I 0.075 H B-Natriuretic Peptide 77.8 Serum Total Protein Albumin Globulin Albumin/Globulin Ratio TSH 3rd Generation Urine Color Urine Clarity Urine pH Ur Specific [place] Urine Protein Urine Glucose (UA) Urine Ketones Urine Blood Urine Nitrite Urine Bilirubin Urine Urobilinogen Ur Leukocyte Esterase Urine RBC Urine WBC Ur Squamous Epith Cells Urine Bacteria Hyaline Casts Random Gentamicin HIV 1&2 Antigen & Ab 05/25/19 05/25/19 05/25/19 01:42 01:42 02:30 WBC RBC Hgb Hct MCV MCH MCHC RDW Plt Count MPV Neutrophils % Neutrophils % (Manual) Band Neuts % (Manual) Lymphocytes % Lymphocytes % (Manual) Monocytes % Monocytes % (Manual) Eosinophils % Basophils % Neutrophils # Lymphocytes # Monocytes # Eosinophils # Basophils # Plt Morphology Comment RBC Morph Comment PT 12.5 INR 0.9 APTT 31.8 Specimen Type art Puncture Site LRA Bicarbonate Actual 20.0 L ABG pH 7.49 H ABG pCO2 27.0 L ABG pO2 63.5 L ABG O2 Sat Calc/Brian 93.5 L ABG O2 Content 16.7 L ABG Base Excess -2.0 ABG Hematocrit 38.0 ABG Hemoglobin 12.8 ABG Oxyhemoglobin 92.5 L ABG Carboxyhemoglobin 0.8 ABG Methemoglobin 0.30 ABG Deoxyhemoglobin 6.4 H Tung Test POSITIVE A-a O2 Gradient 130.910 H Ionized Calcium 1.01 L Mode of Support NC Inspired O2 32 Sodium 132 L Potassium 3.72 Chloride 103 Carbon Dioxide Anion Gap BUN Creatinine Estimated GFR (MDRD) Glucose Lactic Acid 3.4 H Calcium Magnesium Total Bilirubin Direct Bilirubin AST ALT Alkaline Phosphatase CK-MB (CK-2) Troponin I B-Natriuretic Peptide Serum Total Protein Albumin Globulin Albumin/Globulin Ratio TSH 3rd Generation Urine Color Urine Clarity Urine pH Ur Specific [place] Urine Protein Urine Glucose (UA) Urine Ketones Urine Blood Urine Nitrite Urine Bilirubin Urine Urobilinogen Ur Leukocyte Esterase Urine RBC Urine WBC Ur Squamous Epith Cells Urine Bacteria Hyaline Casts Random Gentamicin HIV 1&2 Antigen & Ab 05/25/19 05/25/19 04:53 04:53 WBC RBC Hgb Hct MCV MCH MCHC RDW Plt Count MPV Neutrophils % Neutrophils % (Manual) Band Neuts % (Manual) Lymphocytes % Lymphocytes % (Manual) Monocytes % Monocytes % (Manual) Eosinophils % Basophils % Neutrophils # Lymphocytes # Monocytes # Eosinophils # Basophils # Plt Morphology Comment RBC Morph Comment PT INR APTT Specimen Type Puncture Site Bicarbonate Actual ABG pH ABG pCO2 ABG pO2 ABG O2 Sat Calc/Brian ABG O2 Content ABG Base Excess ABG Hematocrit ABG Hemoglobin ABG Oxyhemoglobin ABG Carboxyhemoglobin ABG Methemoglobin ABG Deoxyhemoglobin Tung Test A-a O2 Gradient Ionized Calcium Mode of Support Inspired O2 Sodium Potassium Chloride Carbon Dioxide Anion Gap BUN Creatinine Estimated GFR (MDRD) Glucose Lactic Acid Calcium Magnesium Total Bilirubin Direct Bilirubin AST ALT Alkaline Phosphatase CK-MB (CK-2) 2.1 Troponin I 1.230 H* B-Natriuretic Peptide Serum Total Protein Albumin Globulin Albumin/Globulin Ratio TSH 3rd Generation Urine Color Urine Clarity Urine pH Ur Specific [place] Urine Protein Urine Glucose (UA) Urine Ketones Urine Blood Urine Nitrite Urine Bilirubin Urine Urobilinogen Ur Leukocyte Esterase Urine RBC Urine WBC Ur Squamous Epith Cells Urine Bacteria Hyaline Casts Random Gentamicin 2.1 HIV 1&2 Antigen & Ab - Imaging Imaging: CTA: No PE CXR: cardiomegaly w/ vascular congestion Echo pending. FMR OB PN: A/P - Problem List (1) No care in current Current Visit: Yes Status: Chronic Code(s): O09.30 - SUPRVSN OF PREG W INSUFFICIENT ANTENAT CARE, UNSP TRIMESTER (2) Obesity (BMI 30-39.9) Current Visit: Yes Status: Chronic Code(s): E66.9 - OBESITY, UNSPECIFIED (3) Grand multiparity with current Current Visit: No Status: Chronic Code(s): O09.40 - SUPERVISION OF W GRAND MULTIPARITY, UNSP TRIMESTER (4) Advanced maternal age in multigravida Current Visit: Yes Status: Acute Code(s): O09.529 - SUPERVISION OF ELDERLY MULTIGRAVIDA, UNSPECIFIED TRIMESTER (5) Acute respiratory distress Current Visit: Yes Status: Acute Code(s): R06.03 - ACUTE RESPIRATORY DISTRESS (6) Pre-eclampsia, severe, delivered Current Visit: Yes Status: Acute Code(s): O14.14 - SEVERE PRE-ECLAMPSIA COMPLICATING CHILDBIRTH (7) Elevated troponin Current Visit: Yes Status: Acute Code(s): R79.89 - OTHER SPECIFIED ABNORMAL FINDINGS OF BLOOD CHEMISTRY Disposition: 39YO G8 now P8 who is PP day #1 s/p precipitous @ ~ 0130 who had no care and developed pre-e with severe range pressures & eventually acute respiratory distress and fever prompting transfer to the CCU for closer monitoring. # Acute respiratory distress: - Patient developed acute respiratory distress overnight prompting supplemental O2 for support and transfer to the CCU. CTA negative for PE but CXR notable for cardiomyopathy & vascular congestion. Suspect mostly likely 2/2 flash pulmonary edema from pre-e vs. PPCM. However, patient also fevered so given recent COVID outbreaks will place under droplet precautions and test for COVID-19 as flu & RVP were negative. Echo also pending to evaluate to PPCM but BNP was WNLs at 77.8. - Now satting 100% on RA. Will consider de-escalating IVFs & consider diuretic therapy pending clinical course. #Sepsis 2/2 UTI, improving: - UA collected from frey notable for nitrite, LE, Bld, WBCs & bacteria & patient fevered up to 103.3F overnight & has been tachycardic since delivery. - Started on IV clinda & gentamicin & bld & urine Cxs collected. HR now just below 100 & no fever since 0400. Will continue BS abx pending Cx results. - Continue tylenol & motrin for fever/pain control. #elevated troponin: - Troponins checked overnight during respiratory distress. Initially elevated at 0.075 but uptrended to 1.230. Repeat x3 pending. Patient denies chest pain & resting comfortably on exam this AM. Could be 2/2 demand ischemia from sepsis &/ or respiratory distress from possible pulmonary edema from pre-e vs. PPCM. - Will continue to trend & repeat w/ EKG should patient develop chest pain. #pre-e w/ severe features: - Severe range blood pressures noted since admission prompting initiation of Mg therapy just before delivery. Now on LEONIE labetalol 200mg BID as well for BP control. BPs well-controlled since ~0400 today. UO 200-300 cc/hr. - Continue monitoring BPs, reflexes, & UO closely. #PP day #1 s/p @ ~0130 on 05/24/19: - Pain controlled on PO meds. Will continue LEONIE motrin & PRN tylenol. Normal lochia. Tolerating liquids PO and not yet ambulating much or voiding due to cath being in place since admission. Continue routine PP care. #grandmultiparity: -s/p routine pit & 800mcg cytotec to prevent PPH. Will admitting counselor on contraception options prior to d/c. #AMA: - Aware, see plan above for grandmultiparity. #No PNC: - Patient not forthcoming as to why she did not receive PNC. Has told different providers different stories as to who she saw during this . Will consult CM to evaluate whether or not infant will be safe to go home with parents. - HIV, RPR, Hep B & UDS negative which is reassuring. Rubella immunity status pending. #Obesity: - Aware, SCDs for PP VTE PPX but will consider lovenox due to suspicion for PPCM pending ECHO results. Will encourage weight loss. #GBS Status Unknown: - inadequate care so no Cx for review & unable to receive tx as patient delivered so precipitously. - Will monitor in hospital for a minimum of 48 hours for s/s of infection. Dispo: Continue BS abx w/ possible transition out of CCU today as HD stable on RA. Discussion: Date/Time: 05/25/19 0709 This H&P was discussed with Dr. Aranda who agrees with the above documentation and plan. Addendum - Attending - Attending Attestation Date/Time: 05/25/19 1430 I personally evaluated the patient and discussed the management with Dr. Raya I agree with the History, Examination, Assessment and Plan documented above with any addition or exceptions noted below. PPD #2 diuresing, BP controlled, afebrile now. Echo EF 25%. Cards consulted. UTI. COVID-19 obs out of CCU.
--- NOTE | 2019-05-25 07:28 | RAD ---
CHEST 1 VIEW: Date: 05/25/2019 INDICATION: History of shortness of breath. COMPARISON: None. FINDINGS: There is increased parenchymal opacity within the right infrahilar region. No susan air space consoli dation is evident. Left lung is clear. Cardiac and mediastinal silhouette is within normal limits. No acute osseous abnormality is evident. IMPRESSION: Slight increased opacity in the right infrahilar region may reflect an area of subsegmental volume lo ss. Consideration would be for a 2 view chest radiograph for further characterization. POS: BH
[2019-05-25 08:56] LABS: Critical Call Chem Troponin I RESULT DECREASING; Troponin I 0.917 ng/mL (< 0.028)
--- NOTE | 2019-05-25 08:59 | EKG ---
Test Reason : Blood Pressure : / mmHG Vent. Rate : 149 BPM Atrial Rate : 149 BPM P-R Int : 122 ms QRS Dur : 072 ms QT Int : 264 ms P-R-T Axes : 066 002 004 degrees QTc Int : 415 ms Sinus tachycardia Junctional ST depression, probably normal Borderline ECG No previous ECGs available Confirmed by DR. Steven GONSALEZ MD ([id number]) on 05/25/2019 8:59:39 AM Referred By: DONNA *r Confirmed By:DR. Steven GONSALEZ MD
[2019-05-25] MEDS ORDERED: NIFEdipine XL 30 MG TAB PO SCH (09:00)
[2019-05-25] MEDS ORDERED: Iopamidol-370 76% 500 ML 1 ML ONE (09:37)
--- NOTE | 2019-05-25 11:01 | CON ---
DATE OF CONSULTATION: 05/25/2019 REASON FOR CONSULTATION: Fever. CONSULTING PHYSICIAN: [facility]. HISTORY OF PRESENT ILLNESS: The patient is a 39-year-old female, who delivered yesterday. She was found to have a fever in the postoperative period up to 103, was transferred to the ICU to rule out COVID-19. She has no history of foreign travel, although she is . She has had a family member at home with influenza. Apparently, the patient has influenza test and herself tested negative. She is having no cough or respiratory symptoms at this time. PAST MEDICAL HISTORY: Multiple pregnancies. PAST SURGICAL HISTORY: Unremarkable. FAMILY MEDICAL HISTORY: Unremarkable. ALLERGIES: NONE. SOCIAL HISTORY: Nonsmoker. Does not consume alcohol. REVIEW OF SYSTEMS: Twelve-point review of systems is otherwise negative. PHYSICAL EXAMINATION: VITAL SIGNS: Temperature currently 99.6, after being as high as 103.3, pulse 98, blood pressure 114/75. GENERAL: She is awake, alert, in no distress. HEENT: Unremarkable. NECK: No adenopathy or JVD. LUNGS: Clear to auscultation without wheezing or rhonchi. CARDIAC: S1 and S2. Regular. ABDOMEN: Soft and nontender to deep palpation. EXTREMITIES: No clubbing, cyanosis, or edema. DIAGNOSTIC DATA: Chest x-ray and chest CT are basically unremarkable. There is some expected atelectasis in the right lower lobe that would be common in the peripartum. LABORATORY DATA: White blood cell count 6.4, hematocrit 36.8, and platelet count 142. PH of 7.49, pCO2 of 27, pO2 of 63. Sodium 133, potassium 4.4, chloride 105, CO2 of 18, BUN 4, creatinine 0.7, glucose 130. Procalcitonin level was 11.3. ASSESSMENT: The patient is presenting with high-grade fever in the . Apparently, she has a family member who has had the flu. However, this patient has tested negative for flu. Currently, she has no respiratory symptoms. RECOMMENDATIONS: I would treat her as a sepsis patient. I doubt this is COVID-19. That test however was ordered and she will have to remain in isolation until it is back. She does not necessitate ICU care and can be moved back to the OB area on a magnesium drip or can be moved out to the regular floor once she is off the magnesium drip here. Pulmonary will be available as needed. Please recall. Job ID: [id number]
[2019-05-25] MEDS: cefTRIAXone\\ROCEPHIN 2 GM in Sodium Chloride 0.9% 100 ML IVPB SCH (14:39)
--- NOTE | 2019-05-25 14:56 | CON ---
DATE OF CONSULTATION: Critical care note. TIME: 30 minutes. HISTORY: Odalis Mosley is a 39-year-old woman, who presents for evaluation of dyspnea. The patient has no previous cardiac history. She recently underwent a delivery. After delivery, she became acutely dyspneic. The patient denied having any chest discomfort. She was noted to have a fever. The patient denies having any PND or orthopnea. PAST MEDICAL HISTORY: None. PAST SURGICAL HISTORY: None. SOCIAL HISTORY: Nonsmoker. ALLERGIES: NONE. PHYSICAL EXAMINATION: GENERAL: This is an obese woman. VITAL SIGNS: Blood pressure of 139/98. LABORATORY DATA: Her sodium is 133, potassium 4.4, chloride 105, bicarbonate 18 , BUN 4, creatinine 0.73, and glucose is 130. Troponin was 0.075. Her white blood cell count 6.4, hemoglobin 13.0, hematocrit 36.8, and platelet are 142. IMAGING DATA: EKG sinus tachycardia with minimal voltage criteria for LVH. IMPRESSION: 1. Congestive heart failure. 2. Cardiomyopathy. 3. Hypertension. 4. Obesity. 5. Escherichia coli sepsis. PLAN: This patient has developed a peripartum cardiomyopathy. The patient also has E coli sepsis. The patient is being treated with antibiotics. From a cardiac standpoint, we would recommend she take Entresto. I have highly recommended this patient not breastfeed, We will also add Coreg. We will follow this patient with you through her hospitalization. Job ID: [id number] MTDD
--- NOTE | 2019-05-25 15:55 | EKG ---
Test Reason : Blood Pressure : / mmHG Vent. Rate : 152 BPM Atrial Rate : 152 BPM P-R Int : 128 ms QRS Dur : 074 ms QT Int : 288 ms P-R-T Axes : 062 -26 043 degrees QTc Int : 457 ms Sinus tachycardia Minimal voltage criteria for LVH, may be normal variant Borderline ECG When compared with ECG of 24-MAY-2019 14:29, (Unconfirmed) T wave inversion no longer evident in Inferior leads Confirmed by WALLACE KAUR, DR. Harris ([id number]) on 05/25/2019 3:55:07 PM Referred By: KAZ Confirmed By:DR. Steven GONSALEZ MD
--- NOTE | 2019-05-25 15:55 | EKG ---
Test Reason : STAT Blood Pressure : / mmHG Vent. Rate : 111 BPM Atrial Rate : 111 BPM P-R Int : 122 ms QRS Dur : 086 ms QT Int : 360 ms P-R-T Axes : 063 -06 016 degrees QTc Int : 489 ms Sinus tachycardia Otherwise normal ECG When compared with ECG of 25-MAY-2019 02:27, (Unconfirmed) No significant change was found Confirmed by WALLACE KAUR, SJessica ([id number]) on 05/25/2019 3:55:29 PM Referred By: Confirmed By:DR. Steven GONSALEZ MD
[2019-05-25] MEDS: Carvedilol 3.125 MG TAB PO SCH (18:18)
[2019-05-25] MEDS ORDERED: Sacubitril 24.5 MG/Valsartan 25.5 MG TABLET PO SCH (21:00)
[2019-05-25] MEDS: Enoxaparin Sodium 40 MG/0.4 ML SYRINGE SC SCH (22:25)
[2019-05-25] MEDS: Labetalol 100 MG TAB PO SCH (22:25)
--- NOTE | 2019-05-26 07:18 | PDOC.OBPPN ---
FMR OB PN: Subj - Interval History Hospital Day: 3 Day: 2 Chief Complaint: None Indentification: G8 now P8 who is PP day #2 s/p . Interval History: Echo confirmed Dx of PPCM and Blood & urine Cxs c/w E coli UTI & bacteremia FMR OB PN: Obj - Maternal Vital signs: BP: 144/90 HR: 92 RR: 18 Tmax: 97.7 Pox: 97% on RA Wt: 90 kg - Urine output I&O: 05/25/19 05/26/19 05/27/19 06:59 06:59 06:59 Intake Total 2100 2534 Output Total 1310 2235 Balance 790 299 - Lochia Lochia: normal - Pain Management Pain scale: 0 Intervention: oral medication FMR OB PN: Exam - Physical Exam General: NAD, awake, alert and oriented HEENT: MMM, grossly normal vision, grossly normal hearing Neck: supple, FROM Heart: RRR, normal S1/S2, no murmurs/rubs/gallops, pulses present, no edema General: CTAB, no respiratory distress, good air movement, no rales/rhonchi, no wheezing Abdomen: soft, fundus(cm) (firm just below umbilicus), non-tender Musculoskeletal: FROM in all four extremities Neurological: cranial nerves II through XII intact, sensation to pain,touch and proprioception grossly normal, no focal deficit : no edema Psychiatric: intact recent and remote memory, good judgement and insight, normal mood and affect - Pelvic Exam : no discharge, no edema, normal lochia FMR OB PN: Data - Labs Lab results: Laboratory Results - last 24 hr 05/24/19 05/25/19 05/25/19 01:11 04:53 08:07 Lactic Acid 1.1 Troponin I Procalcitonin 11.13 Rubella IgG Antibody 6.52 05/25/19 05/25/19 05/25/19 08:07 08:07 16:29 Lactic Acid Troponin I 0.917 H* Procalcitonin 16.15 19.68 Rubella IgG Antibody 05/26/19 04:32 Lactic Acid Troponin I Procalcitonin 17.03 Rubella IgG Antibody - Imaging Imaging: ECHO (05/25): EF 25-30% FMR OB PN: A/P - Problem List (1) No care in current Current Visit: Yes Status: Chronic Code(s): O09.30 - SUPRVSN OF PREG W INSUFFICIENT ANTENAT CARE, UNSP TRIMESTER (2) Obesity (BMI 30-39.9) Current Visit: Yes Status: Chronic Code(s): E66.9 - OBESITY, UNSPECIFIED (3) Grand multiparity with current Current Visit: No Status: Chronic Code(s): O09.40 - SUPERVISION OF W GRAND MULTIPARITY, UNSP TRIMESTER (4) Advanced maternal age in multigravida Current Visit: Yes Status: Acute Code(s): O09.529 - SUPERVISION OF ELDERLY MULTIGRAVIDA, UNSPECIFIED TRIMESTER (5) Acute respiratory distress Current Visit: Yes Status: Acute Code(s): R06.03 - ACUTE RESPIRATORY DISTRESS (6) Pre-eclampsia, severe, delivered Current Visit: Yes Status: Acute Code(s): O14.14 - SEVERE PRE-ECLAMPSIA COMPLICATING CHILDBIRTH (7) Elevated troponin Current Visit: Yes Status: Acute Code(s): R79.89 - OTHER SPECIFIED ABNORMAL FINDINGS OF BLOOD CHEMISTRY (8) E. coli UTI Current Visit: Yes Status: Acute Code(s): N39.0 - URINARY TRACT INFECTION, SITE NOT SPECIFIED; B96.20 - UNSP ESCHERICHIA COLI THE CAUSE OF DISEASES CLASSD ELSWHR (9) E coli bacteremia Current Visit: Yes Status: Acute Code(s): R78.81 - BACTEREMIA; B96.20 - UNSP ESCHERICHIA COLI THE CAUSE OF DISEASES CLASSD ELSWHR (10) Cardiomyopathy, peripartum, Current Visit: Yes Status: Acute Code(s): O90.3 - PERIPARTUM CARDIOMYOPATHY Disposition: 39YO G8 now P8 who is PP day #2 s/p precipitous @ ~ 0130 who had no care and developed pre-e with severe range pressures which has now resolved but has since developed PPCM & E coli bacteremia. Peripartum Cardiomyopathy: - Confirmed on TTE yesterday that revealed patient currently has an EF of 25-30% . Cardiology on board & started BB & entresto therapy, appreciate recs. May need to adjust to something more affordable prior to d/c. Will touch base w/ cards & CM regarding this. - Continue lovenox for VTE PPX & tele monitoring for arrhythmias. - Will put on mild fluid restrictions and monitor I&Os strictly, QD weights. #Sepsis 2/2 E coli pyelonephritis & bacteremia, improving: - Urine & 1/2 bld Cxs + for E coli. Urine Cxs showing organism is pansensitive. No renal US to confirm pyelo but patient was reported left flank pain w/ mild CVA tenderness on exam prior to transfer to CCU. - Will continue high dose rocephin for now w/ transition to an oral agent once patient has been afebrile for 48 hours to continue to complete a 14 day course. - Flu and RVP negative so COVID-19 swab was also obtained at time of fever so will continue droplet precautions pending test results. However, very low suspicion for COVID-19 infection. - Continue tylenol & motrin for fever/pain control. #elevated troponin: - 0.7-->1.2-->0.9. Likely NSTEMI type II 2/2 demand ischemia in setting of sepsis. Will repeat w/ an EKG should patient develop chest pain. #pre-e w/ severe features: - Mg stopped yesterday morning after just over 24 hours of therapy since delivery. IVFs also stopped in setting of PPCM. - BPs WNLs up until 0400 today since stopping therapy. Will continue coreg & entresto for now per cards recs & adjust accordingly PRN with close monitoring of BPs. #PP day #2 s/p @ ~0130 on 05/24/19: - Pain controlled on PO meds. Will continue LEONIE motrin & PRN tylenol. Normal lochia. Tolerating liquids PO and not yet ambulating much or voiding due to cath being in place since admission. Continue routine PP care. #grandmultiparity: -s/p routine pit & 800mcg cytotec to prevent PPH. Will residential treatment counselor on contraception options prior to d/c. #AMA: - Aware, see plan above for grandmultiparity. #No PNC: - Patient not forthcoming as to why she did not receive PNC. Has told different providers different stories as to who she saw during this . Will consult CM to evaluate whether or not infant will be safe to go home with parents. - HIV, RPR, Hep B & UDS negative which is reassuring. Rubella immunity status pending. #Obesity: - Aware, started lovenox last night for VTE PPX given new Dx of PPCM with obesity, very high risk for VTE. Will encourage weight loss. #GBS Status Unknown: - inadequate care so no Cx for review & unable to receive tx as patient delivered so precipitously. - Will monitor infant in hospital for a minimum of 48 hours for s/s of infection. # Acute respiratory distress 2/2 suspected ARDS from PPCM, resolved: - Most likely 2/2 ARDS from pre-e w/ severe features &/or PPCM confirmed on ECHO yesterday. Continue to monitor respiratory status closely & diurese PRN. Dispo: Continue IV rocephin & close monitoring on telemetry until patient has been fever free for at least 48 hours before switching to a PO regimen to be continued for 10-14 days. Discussion: Date/Time: 05/26/19 6116 This H&P was discussed with Dr. Aiken who agrees with the above documentation and plan. Addendum - Attending - Attending Attestation Date/Time: 05/26/19 9411 I personally evaluated the patient and discussed the management with Dr. Raya I agree with the History, Examination, Assessment and Plan documented above with any addition or exceptions noted below. HD#2 PPD#2 Patient doing well. Denies symptoms. VS reviewed. BP still elevated. 1. s/p : Routine care. Start pumping breast milk. Unable to give to due to cardiac medications. 2. preeclampsia with severe features s/p mag. 3. ppCM: Cards following. Continue to adjust meds for max dosing. 4. HTN: Add CCB. Continue diuretic. 5. NSTEMI type II: Cards following. 6. sepsis 2/2 pyelo complicated by bacteremia with E. coli: Sensitivities reviewed. Has been afebrile since 05/25/19 at 0400. Will continue IV antibx at this time. Switch to PO after 48 hours afebrile. 7. AMA 8. No care 9. COVID rule out: Low likelihood. Results pending. Daryl
[2019-05-26] MEDS: Ibuprofen 800 MG TAB PO SCH (07:19)
[2019-05-26] MEDS: Carvedilol 3.125 MG TAB PO SCH (08:10)
[2019-05-26] MEDS: Labetalol 100 MG TAB PO SCH (08:10)
[2019-05-26] MEDS: Ferrous Sulfate 325 MG TAB PO SCH ×2 (08:10→17:14)
[2019-05-26] MEDS: Prenatal Vitamin 1 TAB PO SCH (08:10)
[2019-05-26] MEDS: Docusate Calcium (SURFAK) 240 MG CAP PO SCH (08:11)
[2019-05-26] MEDS: cefTRIAXone\\ROCEPHIN 2 GM in Sodium Chloride 0.9% 100 ML IVPB SCH (13:54)
[2019-05-26] MEDS ORDERED: Carvedilol 3.125 MG TAB PO SCH (14:30)
[2019-05-26] MEDS ORDERED: Furosemide 40 MG/4 ML VIAL SLOW IVP SCH ×2 (14:30→22:15)
[2019-05-26] MEDS ORDERED: Carvedilol 6.25 MG TAB PO SCH ×2 (17:00)
[2019-05-26] MEDS: Enoxaparin Sodium 40 MG/0.4 ML SYRINGE SC SCH (22:13)
[2019-05-26] MEDS: Sacubitril 49 MG/Valsartan 51 MG TABLET PO SCH (22:13)
[2019-05-27 05:23] LABS: Anion Gap 15 mmol/L (10-20); BUN (Urea Nitrogen) 10 mg/dL (7.0-18.7); Calc. Creatinine Clearance 175 mL/min (70-130); Calcium 8.7 mg/dL (7.8-10.44); Carbon Dioxide 25 mmol/L (22-29); Chloride 104 mmol/L (98-107); Estimated GFR-MDRD Greater than 90; Glucose 79 mg/dL (70-105); Potassium 3.4 mmol/L (3.5-5.1); Sodium 141 mmol/L (136-145)
[2019-05-27] MEDS ORDERED: Furosemide 40 MG/4 ML VIAL SLOW IVP SCH (06:00)
--- NOTE | 2019-05-27 06:12 | PDOC.OBPPN ---
FMR OB PN: Subj - Interval History Hospital Day: 4 Day: 3 Chief Complaint: None Indentification: who is PP day #3 s/p term w/ PPCM & ecoli bacteremia. Interval History: Patient's BP remained elevated yesterday but improved some with diuresis. FMR OB PN: Obj - Maternal Vital signs: BP: 154/95 HR: 103 RR: 18 Tmax: 99.0F Pox: 98% on RA Wt: 90 kg - Urine output I&O: 05/25/19 05/26/19 05/27/19 06:59 06:59 06:59 Intake Total 2100 3784 1520 Output Total 1310 2235 2040 Balance 790 1549 -520 - Lochia Lochia: minimal - Pain Management Pain scale: 0 Intervention: oral medication (tylenol PRN) FMR OB PN: Exam - Physical Exam General: NAD, awake, alert and oriented HEENT: MMM, grossly normal vision, grossly normal hearing Neck: supple, FROM, other (+ JVD) Heart: RRR, normal S1/S2, no murmurs/rubs/gallops, pulses present, no edema General: CTAB, no respiratory distress, good air movement, other (decreased breath sounds in B/L bases but no crackles noted) Abdomen: soft, non-tender, bowel sound present Musculoskeletal: FROM in all four extremities Neurological: cranial nerves II through XII intact, sensation to pain,touch and proprioception grossly normal, no focal deficit Skin: no rash, good tugor Psychiatric: intact recent and remote memory, good judgement and insight, normal mood and affect - Pelvic Exam : no discharge, no edema, normal lochia FMR OB PN: Data - Labs Lab results: Laboratory Results - last 24 hr 05/27/19 05/27/19 04:22 04:22 Sodium 141 Potassium 3.4 L Chloride 104 Carbon Dioxide 25 Anion Gap 15 BUN 10 Creatinine 0.63 Estimated GFR (MDRD) Greater than 90 Glucose 79 Calcium 8.7 Procalcitonin 8.18 FMR OB PN: A/P - Problem List (1) No care in current Current Visit: Yes Status: Chronic Code(s): O09.30 - SUPRVSN OF PREG W INSUFFICIENT ANTENAT CARE, UNSP TRIMESTER (2) Obesity (BMI 30-39.9) Current Visit: Yes Status: Chronic Code(s): E66.9 - OBESITY, UNSPECIFIED (3) Grand multiparity with current Current Visit: No Status: Chronic Code(s): O09.40 - SUPERVISION OF W GRAND MULTIPARITY, UNSP TRIMESTER (4) Advanced maternal age in multigravida Current Visit: Yes Status: Acute Code(s): O09.529 - SUPERVISION OF ELDERLY MULTIGRAVIDA, UNSPECIFIED TRIMESTER (5) Acute respiratory distress Current Visit: Yes Status: Acute Code(s): R06.03 - ACUTE RESPIRATORY DISTRESS (6) Pre-eclampsia, severe, delivered Current Visit: Yes Status: Acute Code(s): O14.14 - SEVERE PRE-ECLAMPSIA COMPLICATING CHILDBIRTH (7) Elevated troponin Current Visit: Yes Status: Acute Code(s): R79.89 - OTHER SPECIFIED ABNORMAL FINDINGS OF BLOOD CHEMISTRY (8) E. coli UTI Current Visit: Yes Status: Acute Code(s): N39.0 - URINARY TRACT INFECTION, SITE NOT SPECIFIED; B96.20 - UNSP ESCHERICHIA COLI THE CAUSE OF DISEASES CLASSD ELSWHR (9) E coli bacteremia Current Visit: Yes Status: Acute Code(s): R78.81 - BACTEREMIA; B96.20 - UNSP ESCHERICHIA COLI THE CAUSE OF DISEASES CLASSD ELSWHR (10) Cardiomyopathy, peripartum, Current Visit: Yes Status: Acute Code(s): O90.3 - PERIPARTUM CARDIOMYOPATHY Disposition: 39YO G8 now P8 who is PP day #2 s/p precipitous @ ~ 0130 who had no care and developed pre-e with severe range pressures which has now resolved but has since developed PPCM & E coli bacteremia. Peripartum Cardiomyopathy: - Confirmed on TTE yesterday that revealed patient currently has an EF of 25-30% . Cardiology on board & started BB & entresto therapy, appreciate recs. May need to adjust to something more affordable prior to d/c. Will touch base w/ cards & CM regarding this. - Continue lovenox for VTE PPX & tele monitoring for arrhythmias. - Will continue fluid restrictions and monitor I&Os strictly, QD weights. #Sepsis 2/2 E coli pyelonephritis & bacteremia, improving: - Urine & 1/2 bld Cxs + for E coli. All cultures growing pansensitive E coli. No renal US to confirm pyelo but patient was reported left flank pain w/ mild CVA tenderness on exam prior to transfer to CCU so suspect this as source for bacteremia. - Afebrile for 48 hours @ 0400 today but will continue IV abx while inpatient with transition to PO agent today or tomorrow pending cards recs for d/c. Needs to continue to complete a 10-14 day course total. - Flu and RVP negative so COVID-19 swab was also obtained at time of fever so will continue droplet precautions pending test results. However, very low suspicion for COVID-19 infection. Can likely d/c on home quarantine pending results. - Continue tylenol & motrin for fever/pain control. #elevated troponin: - 0.7-->1.2-->0.9. Likely NSTEMI type II 2/2 demand ischemia in setting of sepsis. Will repeat w/ an EKG should patient develop chest pain. #pre-e w/ severe features: - Mg stopped yesterday morning after just over 24 hours of therapy since delivery. IVFs also stopped in setting of PPCM. - BP elevated with a few in severe range over the course of the day yesterday. Will continue coreg & entresto with addition of nifedipine BID #PP day #3 s/p @ ~0130 on 05/24/19: - Pain controlled on PO meds. Will PRN tylenol. Normal lochia. Tolerating PO, ambulating, voiding & stooling normally as of yesterday. Continue routine PP care. #grandmultiparity: -s/p routine pit & 800mcg cytotec to prevent PPH. Will student loan counselor on contraception options prior to d/c. #AMA: - Aware, see plan above for grandmultiparity. #No PNC: - Patient not forthcoming as to why she did not receive PNC. Has told different providers different stories as to who she saw during this . Will consult CM to evaluate whether or not will be safe to go home with parents. - HIV, RPR, Hep B & UDS negative which is reassuring. Rubella immunity status pending. #Obesity: - Aware, started lovenox last night for VTE PPX given new Dx of PPCM with obesity, very high risk for VTE. Will encourage weight loss. #GBS Status Unknown: - inadequate care so no Cx for review & unable to receive tx as patient delivered so precipitously. - Will monitor infant in hospital for a minimum of 48 hours for s/s of infection. # Acute respiratory distress 2/2 suspected ARDS from PPCM, resolved: - Most likely 2/2 ARDS from pre-e w/ severe features &/or PPCM confirmed on ECHO yesterday. Continue to monitor respiratory status closely & diurese PRN. Dispo: Continue IV rocephin & close monitoring on telemetry pending cards recs for d/c. Continue diuresis & adjust BP meds PRN. Discussion: Date/Time: 05/27/19 0611 This H&P was discussed with Dr. Aiken who agrees with the above documentation and plan. Addendum - Attending - Attending Attestation Date/Time: 05/27/19 1617 I personally evaluated the patient and discussed the management with Dr. Raya I agree with the History, Examination, Assessment and Plan documented above with any addition or exceptions noted below. HD#3 PPD#3 Patient doing well. Denies symptoms. Having trouble with breast pump. VS reviewed. 1. s/p : Routine care. Nursing staff in room assisting with pump. Breast soft. 2. preeclampsia with severe features s/p mag. 3. ppCM: Cards following. Continue to adjust meds for max dosing. Awaiting repeat ECHO to determine if LIFE vest needed. 4. HTN: Adjust CCB. Continue diuretic. 5. NSTEMI type II: Cards following. 6. sepsis 2/2 pyelo complicated by bacteremia with E. coli: Has been afebrile since 05/25/19 at 0400. Now afebrile x 48 hours. Will switch to PO antibx in AM. 7. AMA 8. No care 9. COVID rule out: Low likelihood. Results pending. Daryl
[2019-05-27] MEDS ORDERED: Carvedilol 6.25 MG TAB PO SCH (08:00)
[2019-05-27] MEDS ORDERED: NIFEdipine XL 30 MG TAB PO SCH (09:00)
[2019-05-27 09:24] LABS: Chlam.trachomatis by PCR,Urine Not Detected (NotDetected)
[2019-05-27] MEDS: Sacubitril 49 MG/Valsartan 51 MG TABLET PO SCH ×2 (09:24→21:36)
[2019-05-27] MEDS: Prenatal Vitamin 1 TAB PO SCH (09:24)
[2019-05-27] MEDS: Ferrous Sulfate 325 MG TAB PO SCH ×2 (09:24→16:45)
[2019-05-27] MEDS: Potassium Chloride 20 MEQ TAB PO SCH (09:24)
[2019-05-27] MEDS: Spironolactone 25 MG TAB PO SCH (12:08)
[2019-05-27] MEDS: cefTRIAXone\\ROCEPHIN 2 GM in Sodium Chloride 0.9% 100 ML IVPB SCH (14:33)
[2019-05-27] MEDS: Carvedilol 25 MG TAB PO SCH (16:45)
[2019-05-27] MEDS: Enoxaparin Sodium 40 MG/0.4 ML SYRINGE SC SCH (21:36)
[2019-05-28 04:34] LABS: #Eosinphils 0.1 thou/uL (0.0-0.7); #Lymphocytes 2.3 thou/uL (1.20-3.40); #Monocytes 0.6 thou/uL (0.11-0.59); #Neutrophils 4.8 thou/uL (1.40-6.50); %Basophils 0.5 % (0.0-1.0); %Eosinophils 0.7 % (0.0-10.0); %Lymphocytes 29.4 % (21.0-51.0); %Monocytes 7.1 % (0.0-10.0); %Neutrophils 62.3 % (42.0-75.0); Hemoglobin 12.8 g/dL (12.0-16.0); Mean Corpuscular HGB CONC 33.4 g/dL (32.0-36.0); Mean Corpuscular Hemoglobin 29.8 pg (27.0-31.0); Mean Corpuscular Volume 89.2 fL (78.0-98.0); Mean Platelet Volume 10.1 fL (7.4-10.4); Platelet Count 286 thou/uL (130-400); RBC Distribution Width 12.5 % (11.5-14.5); White Blood Cell (WBC) Count 7.7 thou/uL (4.8-10.8)
--- NOTE | 2019-05-28 07:34 | PDOC.OBPPN ---
FMR OB PN: Subj - Interval History Chief Complaint: pt doing well, resting in bed. denies chest pain, sob, fever/ chills FMR OB PN: Obj - Urine output I&O: 05/27/19 05/28/19 05/29/19 06:59 06:59 06:59 Intake Total 2240 1550 Output Total 3640 2480 Balance -1400 -930 FMR OB PN: Exam - Physical Exam General: NAD HEENT: normocephalic and atraumatic Chest: non-tender to palpation Heart: RRR, normal S1/S2 General: CTAB, no respiratory distress Abdomen: soft Neurological: cranial nerves II through XII intact Skin: no rash FMR OB PN: Data - Labs Lab results: Laboratory Results - last 24 hr 05/24/19 05/28/19 05/28/19 21:15 03:55 03:55 WBC 7.7 RBC 4.30 Hgb 12.8 Hct 38.4 MCV 89.2 MCH 29.8 MCHC 33.4 RDW 12.5 Plt Count 286 MPV 10.1 Neutrophils % 62.3 Lymphocytes % 29.4 Monocytes % 7.1 Eosinophils % 0.7 Basophils % 0.5 Neutrophils # 4.8 Lymphocytes # 2.3 Monocytes # 0.6 H Eosinophils # 0.1 Basophils # 0.0 Procalcitonin 3.39 Ur N gonorrhoeae DNA (PCR) Not Detected Ur C. trach DNA (PCR) Not Detected Chlamydia/GC Spec Info FMR OB PN: A/P - Problem List (1) Acute respiratory distress Current Visit: Yes Status: Acute Code(s): R06.03 - ACUTE RESPIRATORY DISTRESS (2) Advanced maternal age in multigravida Current Visit: Yes Status: Acute Code(s): O09.529 - SUPERVISION OF ELDERLY MULTIGRAVIDA, UNSPECIFIED TRIMESTER (3) Cardiomyopathy, peripartum, Current Visit: Yes Status: Acute Code(s): O90.3 - PERIPARTUM CARDIOMYOPATHY (4) E coli bacteremia Current Visit: Yes Status: Acute Code(s): R78.81 - BACTEREMIA; B96.20 - UNSP ESCHERICHIA COLI THE CAUSE OF DISEASES CLASSD ELSWHR (5) E. coli UTI Current Visit: Yes Status: Acute Code(s): N39.0 - URINARY TRACT INFECTION, SITE NOT SPECIFIED; B96.20 - UNSP ESCHERICHIA COLI THE CAUSE OF DISEASES CLASSD ELSWHR (6) Elevated troponin Current Visit: Yes Status: Acute Code(s): R79.89 - OTHER SPECIFIED ABNORMAL FINDINGS OF BLOOD CHEMISTRY (7) Pre-eclampsia, severe, delivered Current Visit: Yes Status: Acute Code(s): O14.14 - SEVERE PRE-ECLAMPSIA COMPLICATING CHILDBIRTH (8) No care in current Current Visit: Yes Status: Chronic Code(s): O09.30 - SUPRVSN OF PREG W INSUFFICIENT ANTENAT CARE, UNSP TRIMESTER (9) Obesity (BMI 30-39.9) Current Visit: Yes Status: Chronic Code(s): E66.9 - OBESITY, UNSPECIFIED (10) Vaginal delivery Current Visit: No Status: Acute Code(s): O80 - ENCOUNTER FOR FULL-TERM UNCOMPLICATED DELIVERY (11) Grand multiparity with current Current Visit: No Status: Chronic Code(s): O09.40 - SUPERVISION OF W GRAND MULTIPARITY, UNSP TRIMESTER Discussion: Date/Time: 05/28/19 0728 39YO G8 now P8 s/p precipitous @ ~ 0130 on 05/24/19 who had no care and developed pre-e with severe range pressures which has now resolved but has since developed PPCM & E coli bacteremia. Peripartum Cardiomyopathy: - Confirmed on TTE, EF of 25-30%, cardiology consulted - coreg & entresto, diurese as needed - Continue lovenox for VTE PPX & tele monitoring for arrhythmias. - Will continue fluid restrictions and monitor I&Os strictly, QD weights. Sepsis 2/2 E coli pyelonephritis & bacteremia, improving: - Urine & 1/2 bld Cxs + for E coli pansensitive - transition to PO bactrim for 14 days of therapy - neg covid19 - Continue tylenol & motrin for fever/pain control. elevated troponin: - 0.7-->1.2-->0.9. Likely NSTEMI type II 2/2 demand ischemia in setting of sepsis. Will repeat w/ an EKG should patient develop chest pain. pre-e w/ severe features: - Mg for 24 hours post delivery - BP elevated with a few in severe range over the course of the day yesterday. Will continue coreg & entresto - continue to monitor and consider increasing for better control s/p @ ~0130 on 05/24/19: - Pain controlled on PO meds. Will PRN tylenol. Normal lochia. Tolerating PO, ambulating, voiding & stooling normally as of yesterday. Continue routine PP care. grandmultiparity: -s/p routine pit & 800mcg cytotec to prevent PPH. Will credit support counselor on contraception options prior to d/c. AMA: - Aware, see plan above for grandmultiparity. No PNC: - concerning hx, CM consulted - HIV, RPR, Hep B & UDS negative which is reassuring. Rubella immunity status pending. Obesity: - Aware, started lovenox last night for VTE PPX given new Dx of PPCM with obesity, very high risk for VTE. Will encourage weight loss. GBS Status Unknown: - not completely treated Acute respiratory distress 2/2 suspected ARDS from PPCM, resolved: - Most likely 2/2 ARDS from pre-e w/ severe features &/or PPCM confirmed on ECHO yesterday. Continue to monitor respiratory status closely & diurese PRN. Dispo: transition to oral abx regimen, DC planning, Continue diuresis & adjust BP meds PRN. This H&P was discussed with Dr. Glover who agrees with the above documentation and plan. Addendum - Attending - Attending Attestation Date/Time: 05/28/19 0930 I personally evaluated the patient and discussed the management with Dr. García. I agree with the History, Examination, Assessment and Plan documented above with any addition or exceptions noted below. COVID neg. switch to PO bactrim today. Nifedipine d/c by cards. Will give lasix to help with Pre-e diuresis. had 2 severe range pressures overnight. Will coordinate outpatient meds with cards. CM consult to help pay for entresto. patient does not have insurance. Likely d/c in the next 48 hrs.
[2019-05-28] MEDS: Potassium Chloride 20 MEQ TAB PO SCH (08:22)
[2019-05-28] MEDS: Ferrous Sulfate 325 MG TAB PO SCH ×2 (08:22→16:32)
[2019-05-28] MEDS: Prenatal Vitamin 1 TAB PO SCH (08:22)
[2019-05-28] MEDS: Sacubitril 49 MG/Valsartan 51 MG TABLET PO SCH ×2 (08:22→20:51)
[2019-05-28] MEDS: Carvedilol 25 MG TAB PO SCH ×2 (08:22→16:32)
[2019-05-28] MEDS ORDERED: Sulfameth/Trimethoprim DS 800-160mg TAB PO SCH (09:15)
[2019-05-28] MEDS ORDERED: Furosemide 20 MG/2 ML VIAL SLOW IVP SCH (09:15)
[2019-05-28] MEDS: Spironolactone 25 MG TAB PO SCH (12:15)
[2019-05-28] MEDS: Enoxaparin Sodium 40 MG/0.4 ML SYRINGE SC SCH (20:51)
[2019-05-28] MEDS: Sulfameth/Trimethoprim DS 800-160mg TAB PO SCH (20:51)
--- NOTE | 2019-05-29 06:12 | PDOC.OBPPN ---
FMR OB PN: Subj - Interval History Day: 5 Doing well this morning, no CP, SOB, fever/chills, lochia decreased. Abd pain minimal. Ambulating well. Tolerating PO intake. No LE edema. No n/v. Eager for discharge. States she knows she needs to take medication and have close outpatient follow up. FMR OB PN: Obj - Maternal Vital signs: BP: 143/91 HR: 92 RR: 20 Tmax: 98.5 Pox: 98% on RA Wt: 83kg - Urine output I&O: 05/27/19 05/28/19 05/29/19 06:59 06:59 06:59 Intake Total 2240 1550 840 Output Total 3640 2480 900 Balance -1400 -930 -60 - Lochia Lochia: minimal, less than normal period - Pain Management Intervention: oral medication FMR OB PN: Exam - Physical Exam General: NAD, awake, alert and oriented HEENT: MMM Neck: supple, trachea midline Heart: RRR, normal S1/S2, no murmurs/rubs/gallops, pulses present, no edema General: CTAB, no respiratory distress, good air movement, no rales/rhonchi, no wheezing Abdomen: soft, gravid, fundus(cm) (below umbilicus, firm), non-tender, bowel sound present Neurological: no focal deficit : no edema Psychiatric: intact recent and remote memory, good judgement and insight, normal mood and affect FMR OB PN: Data - Labs Lab results: Laboratory Results - last 24 hr 05/25/19 05/29/19 02:55 04:09 Procalcitonin 1.59 COVID-19 PCR NOT DETECTED FMR OB PN: A/P - Problem List (1) Advanced maternal age in multigravida Current Visit: Yes Status: Acute Code(s): O09.529 - SUPERVISION OF ELDERLY MULTIGRAVIDA, UNSPECIFIED TRIMESTER (2) Cardiomyopathy, peripartum, Current Visit: Yes Status: Acute Code(s): O90.3 - PERIPARTUM CARDIOMYOPATHY (3) E coli bacteremia Current Visit: Yes Status: Acute Code(s): R78.81 - BACTEREMIA; B96.20 - UNSP ESCHERICHIA COLI THE CAUSE OF DISEASES CLASSD ELSWHR (4) E. coli UTI Current Visit: Yes Status: Acute Code(s): N39.0 - URINARY TRACT INFECTION, SITE NOT SPECIFIED; B96.20 - UNSP ESCHERICHIA COLI THE CAUSE OF DISEASES CLASSD ELSWHR (5) Pre-eclampsia, severe, delivered Current Visit: Yes Status: Acute Code(s): O14.14 - SEVERE PRE-ECLAMPSIA COMPLICATING CHILDBIRTH (6) Vaginal delivery Current Visit: No Status: Acute Code(s): O80 - ENCOUNTER FOR FULL-TERM UNCOMPLICATED DELIVERY Disposition: 39YO G8 now P8 s/p precipitous @ ~ 0130 on 05/24/19 who had no care and developed pre-e with severe range pressures which has now resolved but has since developed PPCM & E coli bacteremia. #Peripartum Cardiomyopathy - Confirmed on TTE, EF of 25-30%, cardiology consulted, appec recs - Repeat ECHO improvement of EF to 35-40% - coreg, entresto, aldactone added - Continue lovenox for VTE PPX & tele monitoring for arrhythmias, no acute events - Will continue fluid restrictions and monitor I&Os strictly, QD weights. - will need close OP follow up #Sepsis 2/2 E coli pyelonephritis & bacteremia, improving - Urine & 1/2 bld Cxs + for E coli pansensitive - transition to PO bactrim for 14 days of therapy - neg covid19 - Continue tylenol & motrin for fever/pain control. - Procal downtrending from 19 -> 1.59 #Elevated troponin - 0.7-->1.2-->0.9. Likely NSTEMI type II 2/2 demand ischemia in setting of sepsis. - Repeat EKG should patient develop chest pain. #Pre-e w/ severe features - Mg for 24 hours post delivery, completed - has had severe range pressures, none in last 24 hours, Will continue coreg, entresto, aldactone - continue to monitor and consider increasing doses for better control #S/p @ ~0130 on 05/24/19 - Pain controlled on PO meds. PRN tylenol. Normal lochia. Tolerating PO, ambulating, voiding & stooling normally. Continue routine PP care. #Grandmultiparity -s/p routine pit & 800mcg cytotec to prevent PPH. Will addictions counselor assistant on contraception options prior to d/c. #AMA - Aware, see plan above for grandmultiparity. #No PNC - concerning hx, CM consulted - HIV, RPR, Hep B & UDS negative which is reassuring. Rubella immunity status pending. - Has arrange OP f/u with [facility] #Obesity - Aware, started lovenox for VTE PPX given new Dx of PPCM with obesity, very high risk for VTE. Will encourage weight loss. #GBS Status Unknown - not completely treated #Acute respiratory distress 2/2 suspected ARDS from PPCM, resolved - Most likely 2/2 ARDS from pre-e w/ severe features &/or PPCM confirmed on ECHO yesterday. Continue to monitor respiratory status closely & diurese PRN. PCP: None Code: Full IVF: SL Diet: HH VTE: Lovenox Dispo: Transitioned to oral abx regimen, DC planning, Continue diuresis & adjust BP meds PRN. Discussion: Date/Time: 05/29/19 0611 This H&P was discussed with Dr. Anne and Dr. Glover who agree with the above documentation and plan. Addendum - Attending - Attending Attestation Date/Time: 05/29/19 9242 I personally evaluated the patient and discussed the management with Dr. Concepción Michaels. I agree with the History, Examination, Assessment and Plan documented above with any addition or exceptions noted below. CM to arrange entresto. BP improved. D/C home today.
[2019-05-29] MEDS: Carvedilol 25 MG TAB PO SCH (08:19)
[2019-05-29] MEDS: Ferrous Sulfate 325 MG TAB PO SCH (08:20)
[2019-05-29] MEDS: Sacubitril 49 MG/Valsartan 51 MG TABLET PO SCH (08:21)
[2019-05-29] MEDS: Sulfameth/Trimethoprim DS 800-160mg TAB PO SCH (08:21)
[2019-05-29] MEDS: Prenatal Vitamin 1 TAB PO SCH (08:22)
[2019-05-29] MEDS: Potassium Chloride 20 MEQ TAB PO SCH (08:23)
[2019-05-29] MEDS: Spironolactone 25 MG TAB PO SCH (11:30)
[2019-05-29 11:31] VITALS: BP 101/65; TEMP 98.4
--- NOTE | 2019-05-29 14:43 | DIS ---
DATE OF ADMISSION: 05/24/2019 DATE OF DISCHARGE: 05/29/2019 RESIDENT: Dr. Coleman Michaels. ADMITTING ATTENDING: Dr. Loza. DISCHARGE ATTENDING: Dr. Glover. CONSULTS: Cardiology, Dr. Joseph. PROCEDURES: 1. Vaginal delivery at approximately 0130 hours on 05/24/2019. 2. Chest x-ray on 05/25/2019, demonstrating slight increased opacity in the right infrahilar region, which may reflect an area of subsegmental volume loss. Consideration would be for a two-view chest x-ray for further characterization. 3. CTA of chest on 05/25/2019, demonstrating no evidence of central pulmonary embolism. No airspace consolidation. Dependent atelectasis involving the posterior lower lobes. No pleural effusion or pneumothorax. No evidence of enlarged lymph nodes. Heart and great vessels appear within normal limits. Mild splenomegaly. The spleen measuring 13.4 cm. 4. Echocardiogram on 05/25/2019, demonstrating ejection fraction of 25% to 30%. 5. Echocardiogram on 05/28/2019, demonstrating ejection fraction of 35% to 40%. 6. COVID 19 testing - NEGATIVE 7. Blood Culture 1/2 and Urine Culture pansuspectible E. coli PRIMARY DIAGNOSES: 1. Peripartum cardiomyopathy. 2. Sepsis secondary to Escherichia coli pyelonephritis and bacteremia. 3. Preeclampsia with severe features. 4. Type 2 npf-TK-cokidfelr myocardial infarction. 5. . 6. Acute respiratory distress secondary to peripartum cardiomyopathy, resolved. SECONDARY DIAGNOSES: 1. Grand multiparity. 2. Advanced maternal age. 3. History of no care. 4. Obesity. 5. GBS status unknown. DISCHARGE MEDICATIONS: 1. Coreg 50 mg p.o. b.i.d. 2. vitamin one tablet p.o. daily. 3. Entresto 49/51 mg one tablet b.i.d. 4. Aldactone 25 mg p.o. daily at noon. 5. Bactrim double strength one tablet p.o. b.i.d. x10 days. HISTORY OF PRESENT ILLNESS AND HOSPITAL COURSE: The patient is a 39-year-old, G8, now P8, who delivered a viable female at 40.0 weeks gestational age at 0131 hours on 05/24/2019. The patient arrived on the L and D floor at 9/100/+1 without records. She stated that she had an ultrasound at 14 weeks' gestational age that gave her MAVERICK of 05/24/2019. labs were known. GBS was unknown. Upon arrival to and D, she had multiple blood pressures in the severe range and thus magnesium was started. Pt then rapidly progressed, AROM, and uncomplicated , and baby was taken to nursery for routine care. The patient was then observed for routine care. The patient did have preeclampsia with severe features and thus her blood pressure, urine output, and reflexes were all monitored. The patient was continued on magnesium for 24 hours post delivery. On 05/24/2019 later on the day of delivery, the patient was noted to have persistent tachycardia into the 130s. She denied any heavy bleeding, dizziness, headache, scotomas, or abdominal pain and no fevers or chills. The patient then spiked a fever and thus blood cultures, urine cultures, gonorrhea, and chlamydia were all obtained. Urinalysis did show leukocyte esterase. The patient was started on clindamycin and gentamicin for possible endometritis. On day #1 on 05/25/2019, the patient had an acute change early in the morning, where she was found to have pulse in the 160s, blood pressure is in the 190s to 200s over 80s to 110, and O2 requirement requiring 15 L of O2 via face mask. She again did not complain of any chest pain, cough, or abdominal pain. The patient was transferred to the ICU. Stat chest x-ray was ordered, stat EKG and labs. The patient was then taken for a CTA that was negative for PE. The patient was then transferred to the ICU for further evaluation and management. Initially, the patient was treated for sepsis due to suspected endometritis versus urinary tract infection. Cultures ultimately did return positive for pansusceptible E coli in the urine and 1/2 blood cultures positive as well. The patient was then transitioned to Rocephin and then transitioned to p.o. Bactrim to complete a total of 14-day course. The patient had an initial procalcitonin that was 19, this trended down to 1.59. The patient's tachycardia improved with treatment of infection. The patient was also tested for COVID-19 and this was NEGATIVE. The patient initially was fluid resuscitated, this remained slightly tachycardic and thus an echocardiogram was obtained. Initial echocardiogram showed an ejection fraction of 25% to 30% and thus the patient was diagnosed with peripartum cardiomyopathy. Cardiology, Dr. Joseph was consulted. Cardiology added Coreg, Entresto, Aldactone, and provided diuresis to aid in the patient's symptoms. The patient was transferred to telemetry in a stable condition after improvement of sxs and stabilization. The patient tolerated diuresis well and tolerated new medications well with improvement of her blood pressure to normal range by the time of discharge. Repeat echocardiogram 3 days after the initial showed improvement of her EF to 35% to 40%. The patient was montored on telemetry, did not have any acute events. The patient was continued on prophylactic Lovenox for prevention of DVTs and PEs. At the time of discharge, the patient was doing very well on these medications, blood pressure well controlled and was very eager for discharge. The patient also had an elevated troponin that trended up from 0.7 to 1.2 to 0.9 , this is likely NSTEMI type 2 secondary to demand ischemia in the setting of sepsis. The patient did not develop any chest pain, shortness of breath resolved, and hypoxia also resolved. The patient was also noted to have previous severe features as she did have magnesium 24 hours post delivery and blood pressure was monitored. With addition of hypertensive medications, her blood pressure did resolve. Regarding the patient's lack of care and multiple comorbidities, it was strongly encouraged the patient to follow up with a primary care physician, and information was provided for [facility] to follow up with us for her primary care needs. The patient should also strongly encouraged to follow up with Cardiology and appointments were given. At the time of discharge, the patient was doing very well and stable. Discharge plan was discussed with the patient and at bedside via video translation and they both voiced agreement and understanding of the discharge plan. Case management assisted with medication assistance. All questions were answered appropriately. DISPOSITION: Stable. DISCHARGE INSTRUCTIONS: 1. Location: Home. 2. Diet: Heart healthy. 3. Activity: As tolerated with no heavy lifting for 6 weeks greater than 20 pounds. 4. Followup: The patient to follow up with primary care physician, [facility] within 1 week of discharge. The patient should also follow up with Cardiology as directed. Job ID: [id number] [facility]
== END 2019-05-29 15:14 | disposition home or self-care (01) | DRG 805 ==
LOC: L&D/OP 00:16 → L&D 01:25 → CCU 05-25 02:12 → 2NO 05-25 15:54
PROVIDERS: ADMIT Obstetrics & Gynecology; ATTEND Obstetrics & Gynecology
PROC: 10E0XZZ Delivery of Products of Conception, External Approach (ICD-10-PCS; principal; 2019-05-24)
PROC: 10907ZC Drainage of Amniotic Fluid, Therapeutic from Products of Conception, Via Natural or Artificial Opening (ICD-10-PCS; 2019-05-24)
DX: O14.14 Severe pre-eclampsia complicating childbirth (principal); I21.A1 Myocardial infarction type 2; Z37.0 Single live birth; J80 Acute respiratory distress syndrome; I42.9 Cardiomyopathy, unspecified; O48.0 Post-term pregnancy; O85 Puerperal sepsis; O99.43 Diseases of the circulatory system complicating the puerperium; Z3A.40 40 weeks gestation of pregnancy; O99.214 Obesity complicating childbirth; B96.20 Unspecified Escherichia coli [E. coli] as the cause of diseases classified elsewhere; O99.53 Diseases of the respiratory system complicating the puerperium; I50.9 Heart failure, unspecified; O86.21 Infection of kidney following delivery
CPT/HCPCS: 36415; 51702; 71045; 71275; 80048; 80053; 80076; 80170; 80306; 81001; 82553; 82570; 82805; 83605; 83735; 83880; 84145; 84156; 84443; 85025; 85027; 85610; 85730; 86706; 86762; 86780; 86850; 86900; 86901; 87040; 87077; 87086; 87149; 87186; 87340; 87389; 87491; 87591; 87633; 87804; 93005; 93010; 93306; 93798; 99285; J0360; J0696; J1580; J1650; J1940; J2001; J2210; J3475; J3490; Q9967; U0001